=== PATIENT | male | born 2005 | race Caucasian/White ===

== ENCOUNTER 2024-08-28 23:26 | Emergency (ER) | payer OTHER, SELFPAY ==
[2024-08-28 23:51] VITALS: BP 141/77; PULSE 89; RESP 18; TEMP 36.5; O2SAT 99; BMI 32.4
[2024-08-29 00:24] VITALS: BP 135/70; PULSE 81; RESP 18; TEMP 36.5; O2SAT 99
[2024-08-29] MEDS: 0.9 % SODIUM CHLORIDE 1000 ml 1,000 ML IV ×2 (00:35→00:45)
[2024-08-29] MEDS: ONDANSETRON 2 MG/ML inj 4 MG IVP (00:35)
[2024-08-29 00:45] LABS: Basophils Absolute Auto 0.01 K/uL (0.00-0.30); Basophils Percent Auto 0.1 % (0.0-3.0); Eosinophils Absolute Auto 0.05 K/uL (0.00-0.50); Eosinophils Percent Auto 0.6 % (0.0-7.0); Hematocrit 47.9 % (37.0-53.0); Immature Granulocytes Abs Auto 0.08 K/uL (0.00-0.30); Lymphocytes Percent Auto 7.9 % (20-44); Mean Corpuscular HGB Conc 33 gm/dL (32-36); Mean Corpuscular Hemoglobin 31 pg (26-34); Mean Corpuscular Volume 94 fL (80-100); Monocytes Percent Auto 7.4 % (0.0-11.0); Platelet Count* 161 K/uL (140-440); RDW Coefficient of Variation % 12.7 % (11.5-15.5); Red Blood Count 5.09 m/uL (4.30-5.90); White Blood Count* 8.02 K/uL (4.50-11.00)
[2024-08-29 00:57] LABS: Chloride* 107 mmol/L (96-114); Sodium* 141 mmol/L (135-149)
[2024-08-29 00:58] LABS: Potassium* 3.7 mmol/L (3.6-5.1)
[2024-08-29 01:00] LABS: Blood Urea Nitrogen* 21 mg/dL (5-24); Est. Creatinine Clearance* 110.17; Estimated Glomerular Filt Rate 111 ml/min
[2024-08-29 01:01] LABS: Anion Gap 8 mEq/L (7-15); Carbon Dioxide* 26 mmol/L (20-32); Glucose* 114 mg/dL (60-115)
[2024-08-29 01:06] LABS: Slide Review Reflex No
--- OUTSIDE RECORDS SUMMARY | 2024-08-29 01:07 | XMS_ITS | Encounter Summary ---
Author Organization [facility] Address [address] [place] [address] Care Team Providers Care Refueling Rampman Name Role Phone Isadora Correa APRN, C.N.P., D.N.P. P [facility] Care Provider Encounter Details Date Type Department Care Team (Late st Contact Info) Description 07/06/2022 Orders Only RST CCM [address] [place] [phone] [facility], Provider, Screening Test Laboratory Social History Tobacco Use Types Packs/Day Years Used Date Smoking Tobacco: Never Smokeless Tobacco: Never Alcohol Use Standard Drinks/Week Comments Never 0 (1 standard drink = 0.6 oz pur e alcohol) Overall Financial Resource Strain (CARDIA) Answe r Date Recorded How hard is it for you to pa y for the very basics like food, housing, medical care, and heating? Patient declined 06/04/2022 PHQ-2 Answer Date Recorded PHQ-9-M Total Score (5-9=Mil d, 10-14=Moderate, 15-19=Moderately Severe, 20-27=Severe) 17 06/04/2022 [facility] [place] of Occupat ional Health - Occupational Stress Questionnaire Answer Date Recorded Do you feel stress - tense, restless, nervous, or anxious, or unable to sleep at night because your mind is troubled all the time - these days? Very much 06/04/2022 Exercise Vital Sign Answer Date Recorde d On average, how many days pe r week do you engage in moderate to strenuous exercise (like a brisk walk)? 2 days 06/04/2022 On average, how many minutes do you engage in exercise at this level? 30 min 06/04/2022 Hunger Vital Sign Answer Date Recorded Within the past 12 months, y ou worried that your food would run out before you got the money to buy more. Never true 06/04/20 Within the past 12 months, t he food you bought just didn't last and you didn't have money to get more. Never true 06/04/2022 PRAPARE - Transportation Answer Date Re corded In the past 12 months, has l ack of transportation kept you from medical appointments or from getting medications? No 07/2021 In the past 12 months, has l ack of transportation kept you from meetings, work, or from getting things needed for daily living? No 06/04/2022 Housing Stability Vital Sign Answer Juarez e Recorded In the last 12 months, was t here a time when you were not able to pay the mortgage or rent on time? Patient refused 06/04/20 In the last 12 months, how many places have you lived? 1 06/04/2022 In the last 12 months, was t here a time when you did not have a steady place to sleep or slept in a long-term (including now)? No 06/04/2022 Depression Answer Date Recor ded PHQ-9-M Total Score (5-9=Mil d, 10-14=Moderate, 15-19=Moderately Severe, 20-27=Severe) 17 06/04/2022 Safety and Environment Answer Date Olivier rded Are there any guns kept in or around your home? No 06/04/2022 Gun Storage Not on file 06/04/2022 Child Education Answer Date Recorded Auto Engine Mechanic Education Not on file 2021 Are you/your child doing well enough in school? Patient refused 06/04/2022 Do you/your child have what you need to learn? Y es 06/04/2022 Read to Child Not on file 06/04/2022 Adolescent Education Answer Date Record ed Are you/your child doing well enough in school? Patient refused 06/04/2022 Do you/your child have what you need to learn? Y es 06/04/2022 Adolescent Substance Use Answer Date Re corded In the past 30 days, have yo u used substances like alcohol or marijuana? Patient refused 06/04/2022 In the past 30 days, have yo u used anything to get high (like other drugs not prescribed to you, over the counter medications, illegal drugs like cocaine, heroin, meth)? No 06/04/2022 Nutrition Answer Date Recorded Nutrition: EVOO Fat Source 13 03/19 Nutrition: Servings of Fruits/Vegetables per Day Not on file 03/19/2020 Dental Answer Date Recorded Dental: Regular Dentist Yes 11/20/19 Sex and Gender Information Value Date Recorded Sex Assigned at Male 11/23/2021 1:16 PM CDT Legal Sex Male 11:07 AM CDT Gender Identity Male 11/23/2021 1:16 PM CDT Sexual Orientation Bisexual 12/29/2023 5: 04 PM CDT documented as of this encounter Plan of Treatment Not on file documented as of this encounter Visit Diagnoses Diagnosis Screening Test Laboratory documented in this encounter Additional Health Concerns Infection Onset Date Last Indicated Resolved Time COVID19 Pending 07/09/2022 07/09/2022 07/09/2022 3 :33 PM DISPUTE COORDINATOR COVID19 07/09/2022 07/09/2022 07/29/2022 4:5 5 AM DISPUTE COORDINATOR Assessment Noted Time PHQ-9 Depression Total Score: 17 022 1:17 PM DISPUTE COORDINATOR documented as of this encounter Care Teams Refueling Rampman Relationship Specialty Start Date End Date AgustinIsadora Alejandra APRN, C.N.P., D.N.P. [address] [place] [phone] PCP - General Family Medicine 11/19/23 documented as of this encounter
--- OUTSIDE RECORDS SUMMARY | 2024-08-29 01:07 | XMS_ITS | Encounter Summary ---
Author Organization [facility] Address [address] [place] [address] Care Team Providers Care Artificial Teeth Inspector Name Role Phone Isadora Correa APRN, C.N.P., D.N.P. P [facility] Care Provider Encounter Details Date Type Department Care Team (Late st Contact Info) Description 08/30/2022 Orders Only RST CCM [address] [place] [phone] [facility], Provider, Screening Test Laboratory Social History Tobacco [...] Score (5-9=Mil d, 10-14=Moderate, 15-19=Moderately Severe, 20-27=Severe) 6 08/18/2022 [facility] [place] of Occupat ional Health - Occupational Stress [...] place to sleep or slept in a longterm (including now)? No 06/04/2022 Depression Answer Date Recor ded PHQ-9-M Total Score (5-9=Mil d, 10-14=Moderate, 15-19=Moderately Severe, 20-27=Severe) 6 08/18/2022 Safety and Environment Answer Date Olivier rded Are there any guns kept in or around your home? No 06/04/2022 Gun Storage Not on file 06/04/2022 Child Education Answer Date Recorded Load Manager Education Not on file 2021 Are you/your [...] documented in this encounter Additional Health Concerns Assessment Noted Time PHQ-9 Depression Total Score: 6 08/18/19 23 1:48 PM BRINE TANK OPERATOR documented as of this encounter Care Teams Artificial Teeth Inspector Relationship Specialty Start Date End Date Agustin-Isadora Alejandra APRN, C.N.P., D.N.P. [address] [place] [phone] PCP - General Family Medicine 11/19/23 documented as of this encounter
--- OUTSIDE RECORDS SUMMARY | 2024-08-29 01:07 | XMS_ITS | Encounter Summary ---
Author Organization [facility] Address [address] [place] [address] Care Team Providers Care Elementary School Band Director Name Role Phone Isadora Correa APRN, C.N.P., D.N.P. P [facility] Care Provider Encounter Details Date Type Department Care Team (Late st Contact Info) Description 09/23/2022 Orders Only RST CCM [address] [place] [phone] [facility], Provider, MD Screening Test Laboratory Social History Tobacco Use [...] Patient declined 06/04/2022 PHQ-2 Answer Date Recorded PHQ-2 Score 6 09/10/2022 [facility] [place] of Occupat ional Health - Occupational Stress [...] place to sleep or slept in a residential (including now)? No 06/04/2022 Depression Answer Date Recor ded PHQ-9 Total Score (max 27) 20 09/10 Safety and Environment Answer Date Olivier rded Are there any guns kept in or around your home? No 06/04/2022 Gun Storage Not on file 06/04/2022 Child Education Answer Date Recorded Jacquard Fixer Education Not on file 2021 Are you/your [...] Assessment Noted Time PHQ-9 Depression Total Score: 20 023 2:01 PM PATTERN MAKER documented as of this encounter Care Teams Elementary [employer] Band Director Relationship Specialty Start Date End Date Agustin-Isadora Alejandra APRN, C.N.P., D.N.P. [address] [place] [phone] PCP - General Family Medicine 11/19/23 documented as of this encounter
--- OUTSIDE RECORDS SUMMARY | 2024-08-29 01:08 | XMS_ITS | Clinical Summary ---
Author Organization [facility] Address [address] [place] [address] Care Team Providers Care Hazardous Waste Material Technician Name Role Phone Isadora Correa APRN, C.N.P., D.N.P. P [facility] Care Provider Source Comments Patient records contain information from all sites at [facility]. For routine questions regarding patient records, call [phone] during business hours, M-F 8:00 AM - 5:00 PM Central Time. Record requests for emergency care only can be directed to [phone] at any time.[facility] Allergies No known active allergies Medications * This document contains information received from the source organization and may not represent a complete record from that organization. omeprazole (PriLOSEC) [address] capsule Take 1 capsule (20 mg total) by mouth every morning before breakfast for 10 days. 10 capsule 3 Active fluticasone propionate (FLONASE) 50 mcg/actuation nasal spray Administer 2 sprays into each nostril daily. 16 g 4 Active loratadine (CLARITIN) 10 mg tablet Take 1 tablet (10 mg total) by mouth daily as needed for allergies. 90 tablet 3 4 Active Active Problems Problem Noted Date Diagnosed Date Bipolar II Disorder 09/10/2022 Obesity Pediatric Body Mass Index 95-98th Percentile Age 2 Or Older 08/19/2022 Anxiety Generalized Disorder 11/25/2021 Depressive Disorder 11/25/2021 Resolved Problems Problem Noted Date Diagnosed Date Resolved Date Loss Weight 08/19/2022 08/19/2022 Severe Obesity Pediatric Bod y Mass Index Greater Than Or Equal To 99 Percentile Age 2 Or Older 04/04/2019 08/19/2022 Immunizations Immunization Administration Dates Next Due PPD Test 01/04/2023,12/28/2022 SARS-COV-2 (COVID-19) - PFIZ ER (Discontinued)(12 years or older) 04/04/2021,02/27/2021 SARS-COV-2 (COVID-19) - PFIZ ER TS(Discontinued)(12 years or older) 12/10/2021 Family History Medical History Relation Name Comments Anxiety disorder Brother Alcohol abuse Father's Brother Bipolar disorder Mother Depression Mother's Sister Alcohol abuse Paternal Grandfather Depression Paternal Grandfather Anxiety disorder Sister Relation Name Status Comments Brother Father's Brother Mother Mother's Sister Paternal Grandfather Sister Social History Tobacco Use Types Packs/Day Years Used Date Smoking Tobacco: Passive Smo ke Exposure - Never Smoker Cigarettes Smokeless Tobacco: Never Tobacco Cessation:Counseling Given: Not Answered Alcohol Use Standard Drinks/Week Comments Never 0 (1 standard drink = 0.6 oz pur e alcohol) 1-2 drinks occasionally [employer] Utilities Answer Date Recorded In the past 12 months has th e electric, gas, oil, or water company threatened to shut off services in your home? No 11/22/2023 Overall Financial Resource Strain (CARDIA) Answe r Date Recorded How hard is it for you to pa y for the very basics like food, housing, medical care, and heating? Patient declined 06/04/2022 PHQ-2 Answer Date Recorded PHQ-2 Score 6 01/03/2024 [facility] of Occupat ional Health - Occupational Stress [...] exercise (like a brisk walk)? 2 days 11/22/2023 On average, how many minutes do you engage in exercise at this level? 40 min 11/22/2023 Hunger Vital Sign Answer Date Recorded Within the past 12 months, y ou worried that your food would run out before you got the money to buy more. Never true 11/22/19 Within the past 12 months, t he food you bought just didn't last and you didn't have money to get more. Never true 11/22/2023 PRAPARE - Transportation Answer Date Re corded In the past 12 months, has l ack of transportation kept you from medical appointments or from getting medications? No 11/03 In the past 12 months, has l ack of transportation kept you from meetings, work, or from getting things needed for daily living? No 11/22/2023 Depression Answer Date Recor ded PHQ-9 Total Score (max 27) 22 01/02 Safety and Environment Answer Date Olivier rded Are there any guns kept in or around your home? No 06/04/2022 Gun Storage Not on file 06/04/2022 Child Education Answer Date Recorded Clinical Dietitian Education Not on file 2021 Are you/your [...] meth)? No 06/04/2022 Nutrition Answer Date Recorded On average, how many serving s of fruits and vegetables do you eat per day (serving size is equal to 1 cup or approximately the size of a tennis ball)? 0-2 11/22/2023 Dental Answer Date Recorded Dental: Regular Dentist No 11/22/19 Employment Answer Date Recorded Employment status Employed and actively working without restrictions 11/22/2023 Housing Stability Answer Date Recorded What is your living situation today? I have a [facility] place to live 11/22/2023 Sex and Gender Information Value Date Recorded Sex Assigned at Male 11/23/2021 1:16 PM CDT Legal Sex Male 11:07 AM CDT Gender Identity Male 11/23/2021 1:16 PM CDT Sexual Orientation Bisexual 12/29/2023 5: 04 PM CDT Last Filed Vital Signs Vital Sign Reading Time Taken Comments Blood Pressure 120/81 01/03/2024 2:30 PM CDT Pulse 64 01/03/2024 2:30 PM CDT Temperature 36.1 C (96.9 F) 11/26/2023 1:17 PM CDT Respiratory Rate 16 11/26/2023 1:17 PM CDT Oxygen Saturation 97% 11/01/2023 10: 35 PM CDT Inhaled Oxygen Concentration - - Weight 108 kg (238 lb 15.7 oz) 01/03/20 2:30 PM CDT with shoes Height 172 cm (5' 7.72) 01/03/2024 2:3 0 PM CDT with shoes Body Mass Index 36.64 01/03/2024 2:30 PM CDT Plan of Treatment Health Maintenance Due Date Last Done Comments Hearing Screening during Well Child Visit 2004 TB Screening during Well Child Visit 2004 1 week Well Child Check-Up 2004 1 month Well Child Check-Up 2004 2 month Well Child Check-Up 2004 4 month Well Child Check-Up 2004 9 month Well Child Check-Up 04/21/2005 15 month Well Child Check-Up 10/20/2005 18 month Well Child Check-Up 01/19/2006 2 year Well Child Check-Up 07/22/2006 30 month Well Child Check-Up 01/19/2007 3 year Well Child Check-Up 07/22/2007 5 year Well Child Check-Up 07/22/2009 6 year Well Child Check-Up 07/22/2010 7 year Well Child Check-Up 07/22/2011 8 year Well Child Check-Up 07/22/2012 10 year Well Child Check-Up 07/22/2014 12 year Well Child Check-Up 07/22/2016 13 year Well Child Check-Up 07/22/2017 13 year Well Child Check-Up 07/22/2018 Vision Screening during Well Child Visit 2018 14 year Well Child Check-Up 07/22/2019 HPV Vaccines (1 - Male 3-dose series) 2019 15 year Well Child Check-Up 08/18/2020 16 year Well Child Check-Up 07/22/2021 18 year Well Child Check-Up 07/22/2022 DTaP,Tdap,and Td Vaccines (1 - Tdap) 2023 Hepatitis A Vaccines (1 of 2 - Risk 2-dose series) 2023 Hepatitis B Vaccines (1 of 3 - 19+ 3-dose series) 2023 COVID-19 Vaccine (2023- season) 2024 12/10/2021, 04/04/2021, 02/27/2021 Influenza Vaccine (#1) 2024 Depression Screening (Annual PHQ-2) 07/05/2024 20 year Well Child Check-Up 07/22/2024 Tobacco Cessation counseling 01/09/2025 01/10/2024, 08/12/2023 18 year Well Child Check-Up Completed 11/26/2023 Glucose Test for Med Monitoring Discontinued 11/26/2023, 11/26/2023, 07/17/2020, Additional history exists HIV Screening Completed 11/26/2023 Hepatitis C Screening Completed 11/26/2023 Well Child Check-Up (WCC) Completed Well Child Check-Up Completed in Past Year Completed 11/26/2023 IPV Vaccines Aged Out No longer eligi ble based on patient's age to complete this topic Meningococcal Vaccine Aged Out No rachael geraldo eligible based on patient's age to complete this topic Pneumococcal vaccine (0-49 years) Aged Out No longer eligible based on patient's age to complete this topic Procedures Procedure Name Priority Date/Time Associated Diagnosis Comments HCV AB SCRN W/REFLEX TO HCV PCR, S Routine 11/26/2023 2:32 PM CDT Health Maintenance Examination Adult HIV-1/-2 AG AND AB SCREEN, PLASMA Routine 11/26/2023 2:32 PM CDT Health Maintenance Examination Adult HEMOGLOBIN A1C, B Routine 11/26/2023 2:3 2 PM CDT Bipolar II Disorder (HCC) Health Maintenance Examination Adult from Last 3 Months or Most Recently Relevant to Health Maintenance Results * HIV-1/-2 Ag and Ab Screen, Plasma (11/26/2023 2:32 PM CDT) HIV Ag/Ab Screen, P Negative Negative 11/28/2023 6:29 PM CDT LCX Comment: Negative result does not rule out HIV infection. If exposure to HIV infection occurred <14 days ago, contact the laboratory to request addition of HIV-1/HIV-2 RNA detection, Plasma (HIP12). HIV-1 p24 Ag Screen, P Negative Negative 11/28/2023 6:29 PM CDT LCX Comment: Negative result does not rule out HIV infection. If exposure to HIV infection occurred <14 days ago, contact the laboratory to request addition of HIV-1/HIV-2 RNA detection, Plasma (HIP12). HIV-1 Ab Screen, P Negative Negative 11/28/2023 6:29 PM CDT LCX Comment: Negative result does not rule out HIV infection. If exposure to HIV infection occurred <14 days ago, contact the laboratory to request addition of HIV-1/HIV-2 RNA detection, Plasma (HIP12). HIV-2 Ab Screen, P Negative Negative 11/28/2023 6:29 PM CDT LCX Comment: Negative result does not rule out HIV infection. If exposure to HIV infection occurred <14 days ago, contact the laboratory to request addition of HIV-1/HIV-2 RNA detection, Plasma (HIP12). Blood (Blood, Venous) 11/26/2023 2:32 PM CDT 11/27/2023 4:00 PM CDT us Isadora Correa APR N, C.N.P., D.N.P. LAB MICROBIOLOGY - BLOOD ORDERABLES Final Result [facility] [address] [place] [address], [facility] LCX [facility] in [address] [address] * HCV Ab Scrn w/Reflex to HCV PCR, Serum (11/26/2023 2:32 PM CDT) Pathologist [facility] HCV Ab Screen, S Negative Negative 11/26/2023 7:18 PM CDT [facility] Blood (Blood, Venous) 11/26/2023 2:32 PM CDT 11/26/2023 6:52 PM CDT Narrative [facility] - 11/26/2023 7:18 PM CDT Specimen Information: Specimen ID: [id number] Specimen Type: Blood Specimen Collection Start Date: 11/26/2023 2:32 PM Specimen Received Date: 11/26/2023 6:52 PM Specimen ID: [id number] Specimen Type: Blood Specimen Collection Start Date: 11/26/2023 2:32 PM Specimen Received Date: 11/26/2023 6:51 PM us Isadora Monroy, C.N.P., D.N.P. LAB MICROBIOLOGY - BLOOD ORDERABLES Final Result [facility] [address] [place] [address], [facility] [place] [address] [place] [address] * Hemoglobin A1c (11/26/2023 2:32 PM CDT) Pathologist [facility] Hemoglobin A1c, B 5.2 4.2 - 5.6 % 11/26/2023 6:07 PM CDT OWAT Blood (Blood, Venous) 11/26/2023 2:32 PM CDT 11/26/2023 5:45 PM CDT Isadora Correa APRN, C.N.P., D.N.P. [place] B BLOOD ADD-ON Final Result [facility] [address] [place] [address], [place] OWAT [facility] [place] [address] [place] [address] from Last 3 Months or Most Recently Relevant to Health Maintenance Insurance [facility] [place] [address] Care Teams Hazardous Waste Material Technician Relationship Specialty Start Date End Date Agustin-Isadora Alejandra APRN, C.N.P., D.N.P. [address] [place] [address] PCP - General Family Medicine 11/19/23
--- OUTSIDE RECORDS SUMMARY | 2024-08-29 01:08 | XMS_ITS | Clinical Summary ---
Author Organization [facility] Address [address] [place] [address] Care Team Providers Care Paving Contractor Name Role Phone Isadora Correa ASSESSMENT ANALYST Primary Care Provi thai Allergies No known active allergies Medications HYDROcodone-ac etaminophen (5-325 mg/tablet)Maddy cations:Mouth pain Take 1-2 Tablets by mouth every 6 hours if needed for Pain. Max acetaminophen dose: 4000 mg in 24 hrs. 12 Tablet Active Social History Tobacco Use Types Packs/Day Years Used Date Smoking Tobacco: Never Smokeless Tobacco: Never Tobacco Cessation:Counseling Given: Not Answered Alcohol Use Standard Drinks/Week Comments Never 0 (1 standard drink = 0.6 oz pur e alcohol) Interpersonal Safety Answer Date Record ed Are you being hit, kicked, p ushed or yelled at (see row info)? No 03/28/2024 Interpersonal Safety Abuse 12 - 18 Not on file 03/28/2024 Interpersonal Safety Ambulatory Vulnerability No t on file 03/28/2024 Sex and Gender Information Value Date Recorded Sex Assigned at Not on file Legal Sex Male 4:34 PM CDT Gender Identity Not on file Sexual Orientation Not on file Obstetrics History Last Filed Vital Signs Vital Sign Reading Time Taken Comments Blood Pressure 134/89 03/28/2024 9:30 PM CDT Pulse 56 03/28/2024 9:30 PM CDT Temperature 36.7 C (98.1 F) 03/28/2024 4:35 PM CDT Respiratory Rate 18 03/28/2024 4:35 PM CDT Oxygen Saturation 99% 03/28/2024 9:30 PM CDT Inhaled Oxygen Concentration - - Weight 94.3 kg (208 lb) 03/28/2024 4:38 PM CDT Height 170.2 cm (5' 7) 03/28/2024 4:38 PM CDT Body Mass Index 32.58 03/28/2024 4:38 PM CDT Plan of Treatment Health Maintenance Due Date Last Done Comments Well Child Check for age 3-20 07/22/2007 Tdap 2015 Depression screening for age 12+ 2016 HIV for age 15-65 2019 HPV series for age 9-26 (1 - Male 3-dose series) 2019 BMI (ht and wt on same day) for age 18+ 2022 Hepatitis C screening for ag e 18-79 2022 COVID-19 vaccine series ( season) 2024 12/10/2021, 04/04/2021, 02/27/2021 Influenza for age 9-49 03/05/2024 Tetanus booster 2024 Meningococcal series for age 11-21 Aged Out No longer eligible b ased on patient's age to complete this topic Pneumococcal series for age 6-49 Aged Out No longer eligible b ased on patient's age to complete this topic Insurance [employer] [facility] Care Teams Paving Contractor Relationship Specialty Start Date End Date AgustinIsadora Alejandra FNP [address] [place] [phone] PCP - General Nurse Practitioner 01/17/24
[2024-08-29 01:18] LABS: Procalcitonin* 0.13 ng/mL (<0.50)
[2024-08-29 01:20] LABS: PCR FLU A Negative PCR FLU A (Negative); PCR FLU B Negative PCR FLU B (Negative); PCR RSV Negative PCR RSV (Negative); SARS PCR* Negative SARS-CoV-2 (Negative)
[2024-08-29 01:41] VITALS: BP 128/74; PULSE 85; RESP 18; TEMP 36.5; O2SAT 99
--- NOTE | 2024-08-29 01:53 | ED_ITS ---
HPI - Nausea/Vomiting/Diarrhea General Date Seen: 08/29/24 Chief complaint: Nausea/Vomiting Stated complaint: Nausea, vomiting, abdominal pain Time Seen by Provider: 08/28/24 23:55 Source: patient and family Mode of arrival: ambulatory Limitations: no limitations History of Present Illness HPI Narrative: Patient is a very nice 19-year-old gentleman who presents here with acute nausea vomiting and only 1 loose stool to, today. His 2 brothers are in also being seen, with similar symptoms and his youngest brother was exposed to rotavirus, they all came down with a similar it and illness with the same symptoms today. He has vomited probably more than the others, with approximately 12-14 times vomiting he thinks today. He has not had a fever, he is making urine, is trying to drink fluids but he says he says he drinks he vomits it up. Now he is just vomiting up some bile, no blood in his vomitus or no blood in his diarrhea. No history of previous surgeries on his abdomen, he does have a history of reflux, takes Prilosec for this. Does have occasional marijuana, but no other drugs not a smoker, no use of alcohol, is a student in [employer] Does have some abdominal pain is epigastric region with this. Not terrible but just always there, has not taken any medications for this. elicited complaint: nausea, vomiting, diarrhea and abdominal pain Onset (ago): hour(s) Description of vomiting: bilious Description of diarrhea: watery Associated nausea: Yes Associated abdominal pain: Yes Location of pain: epigastric Pain consistency: constant Severity: moderate Quality: cramping Exacerbating factors: none Relieving factors: none Associated symptoms: denies other symptoms Treatment prior to arrival: none Related Data Home Medications ?Medication ?Instructions ?Recorded ?Confirmed omeprazole .ROUTE 08/28/24 Allergies Allergy/AdvReac Type Severity Reaction Status Date / Time No Known Drug Allergies Allergy Verified 08/28/24 23:52 Review of Systems Status of ROS: Reports: 10 or more systems reviewed and unremarkable except as noted in History and below GI: Reports: nausea PFSH PFSH Medical History No significant past medical history Surgical History No significant past surgical history Social History Smoking Status: Never smoker Second hand tobacco smoke exposure: No How often do you have a drink containing alcohol: never AUDIT-C Alcohol total score: 0 Non-prescribed substance use: marijuana (any form) Exam Narrative: Exam Narrative: During this evaluation of this patient I considered multiple differential diagnosis is which included the life-threatening such as appendicitis, aortic aneurysm, mesenteric ischemia, bowel perforation, volvulus, and bowel obstruction. Other differential diagnosis is include but are not limited to cholecystitis, pancreatitis, hepatitis, gastritis, GERD, diverticulitis, peptic ulcer disease, pyelonephritis/UTI, renal colic/stone, testicular torsion as well as other acute scrotal processes, inflammatory bowel disease, as well as other etiologies epigastric region, no guarding, no masses, no organomegaly. Skin reveals no petechiae rashes, skin turgor is excellent, moves all extremities independently well with cap refill of less than 2 seconds. Const: Vital Signs, click to edit/add: Vital Signs - 24 hr 08/28/24 23:51 08/29/24 00:24 08/29/24 01:41 Temperature 97.7 F 97.7 F 97.7 F Pulse Rate [Pulse Oximeter] 89 81 85 Respiratory Rate 18 18 18 Blood Pressure [Le ft Upper Arm] 141/77 H 135/70 128/74 Pulse Oximetry 99 99 99 Oxygen Delivery Me thod Room Air Room Air Room Air 08/29/24 01:41 Temperature 97.7 F Pulse Rate [Pulse Oximeter] 85 Respiratory Rate 18 Blood Pressure [Le ft Upper Arm] 128/74 Pulse Oximetry Oxygen Delivery Me thod Documenting provider has reviewed patient's vital signs: yes Course Course ED Course: I went back in and examined the patient he is doing much better after 2 L of fluids, feels improved, abdominal pain on examination is very minimal, I discussed with them that this is more consistent with a rotavirus which is what they were exposed to. At this point they would like to go home, I will give him some Zofran, I did warn them that if the abdominal pain returns or worsens occasionally people can go 1 have issues like appendicitis, we went over the warning signs of this and when to come back because the dehydration also. Very infectious, proper hand washing is suggested Vital Signs Vital signs: Initial Vital Signs Temperature 97.7 F 08/28/24 23:51 Temperature Source Temporal Artery Scan 08/28/24 23:51 Pulse Rate 89 08/28/24 23:51 Respiratory Rate 18 08/28/24 23:51 Blood Pressure 141/77 H 08/28/24 23:51 Blood Pressure Mean 98 08/28/24 23:51 Blood Pressure Position Sitting 08/28/24 23:51 Pulse Oximetry 99 08/28/24 23:51 Oxygen Delivery Method Room Air 08/28/24 23:51 Vital Signs Temperature 97.7 F 08/28/24 23:51 Pulse Rate 89 08/28/24 23:51 Respiratory Rate 18 08/28/24 23:51 Blood Pressure 141/77 H 08/28/24 23:51 Pulse Oximetry 99 08/28/24 23:51 Oxygen Delivery Method Room Air 08/28/24 23:51 Temperature 97.7 F 08/29/24 01:41 Pulse Rate 85 08/29/24 01:41 Respiratory Rate 18 08/29/24 01:41 Blood Pressure 128/74 08/29/24 01:41 Pulse Oximetry 99 08/29/24 01:41 Oxygen Delivery Method Room Air 08/29/24 01:41 Medications Administered Medications: Discontinued Medications Generic Name Dose Route Start Last Admin Trade Name Freq PRN Reason Stop Dose Admin Sodium Chloride 1,000 mls @ 1,000 mls/hr 08/29/24 00:30 08/29/24 01:33 0.9 % Sodium Chloride 1000 Ml IV 08/29/24 01:29 Infused .Q1H AN Infusion Sodium Chloride 1,000 mls @ 1,000 mls/hr 08/29/24 00:30 08/29/24 01:33 0.9 % Sodium Chloride 1000 Ml IV 08/29/24 01:29 Infused .Q1H AN Infusion Ondansetron HCl 4 mg 08/29/24 00:24 08/29/24 00:35 Ondansetron 2 Mg/Ml Inj IVP 08/29/24 00:25 4 mg ONCE ONE Administration MDM - Nausea/Vomiting/Diarrhea MDM Narrative Medical decision making narrative: Differential diagnosis includes but is not limited to viral gastroenteritis, drug food poisoning, pyloric stenosis, gastritis, pancreatitis, hepatitis, cholecystitis, appendicitis, bowel obstruction, hyperemesis, cyclic vomiting syndrome, bulimia nervosa, migraine headache, motion sickness and medication side effect. These include the life threatening complications of appendicitis, drug food poisoning and bowel obstruction. Differential diagnosis considered include but not limited to viral gastroenteritis, food poisoning, bowel obstruction, Clostridium difficile, Campylobacter, Shigella, rotavirus, medication side effects, dysentery, diverticulitis, Crohn's disease and colitis During this evaluation of this patient I considered multiple differential diagnosis is which included the life-threatening such as appendicitis, aortic aneurysm, mesenteric ischemia, bowel perforation, volvulus, and bowel obstruction. Other differential diagnosis is include but are not limited to c holecystitis, pancreatitis, hepatitis, gastritis, GERD, diverticulitis, peptic ulcer disease, pyelonephritis/UTI, renal colic/stone, testicular torsion as well as other acute scrotal processes, inflammatory bowel disease, as well as other etiologies Medical Records Attestation: I reviewed the patient's medical records. Lab Data Attestation: I reviewed the patient's lab results. Labs: Lab Results 08/29/24 Range/Units 00:30 WBC 8.02 (4.50-11.00) K/uL RBC 5.09 (4.30-5.90) m/uL Hgb 16.0 (13.5-17.5) gm/dL Hct 47.9 (37.0-53.0) % MCV 94 (80-100) fL MCH 31 (26-34) pg MCHC 33 (32-36) gm/dL RDW Coeff of Presley 12.7 (11.5-15.5) % Plt Count 161 (140-440) K/uL Neut % (Auto) 83.0 H (42.0-72.0) % Lymph % (Auto) 7.9 L (20-44) % [place] % (Auto) 7.4 (0.0-11.0) % Eos % (Auto) 0.6 (0.0-7.0) % Baso % (Auto) 0.1 (0.0-3.0) % Neut # (Auto) 6.70 (1.7-7.0) K/uL Lymph # (Auto) 0.60 L (0.90-2.90) K/uL [place] # (Auto) 0.60 (0.00-0.90) K/UL Eos # (Auto) 0.05 (0.00-0.50) K/uL Baso # (Auto) 0.01 (0.00-0.30) K/uL Abs Immat Gran (auto) 0.08 (0.00-0.30) K/uL Imm/Tot Granulo (auto) 1.0 % Sodium 141 (135-149) mmol/L Potassium 3.7 (3.6-5.1) mmol/L Chloride 107 (96-114) mmol/L Carbon Dioxide 26 (20-32) mmol/L Anion Gap 8 (7-15) mEq/L BUN 21 (5-24) mg/dL Creatinine 1.0 (0.5-1.5) mg/dL Estimated Creat Clear 110.17 Estimated GFR 111 ml/min Glucose 114 (60-115) mg/dL Calcium 9.0 (8.4-10.6) mg/dL Procalcitonin 0.13 (<0.50) ng/mL SARS-CoV-2 (PCR) Negative SARS-CoV-2 (Negative) Influenza Type A (PCR) Negative PCR FLU A (Negative) Influenza Type B (PCR) Negative PCR FLU B (Negative) RSV (PCR) Negative PCR RSV (Negative) Discharge Plan Discharge Clinical Impression: Vomiting, Diarrhea, Abdominal pain Patient Disposition: Home w/ Parent or Adult Condition: Improved Instructions: Acute Nausea and Vomiting (DC), Acute Diarrhea (ED), Abdominal Pain (ED) Additional Instructions: Home, rest, use of Zofran, warm packs, on the abdomen can help this, lots of fl uids, not just water, half-strength Gatorade or Pedialyte is the best. Increasing to brat diet, bananas rice applesauce and toast. Tylenol for the pain is the best for this, I would avoid the NSAIDs such as ibuprofen, Aleve. This usually runs a course of a day or 2, and then improves, very contagious, lots a hand washing, if the abdominal pain worsens, doubles you over, goes tear back, develop a fever, then please come back Activity Level: Light activity Discharge Diet: Clear Liquid Prescriptions: No Action omeprazole .ROUTE Follow Up/Referrals: Nii Pelletier MD [Primary Care Provider] - Stand Alone [facility]
== END 2024-08-29 01:42 | disposition home or self-care (01) ==
PROVIDERS: Emergency Provider Family Medicine; PCP Family Medicine
DX: R11.10 Vomiting, unspecified (principal); R19.7 Diarrhea, unspecified
CPT/HCPCS: 36415; 80048; 81001; 84145; 85025; 87631; 96374; 99283; 99284; J2405; J7030